=== PATIENT | female | born 1990 | race Caucasian/White ===

== ENCOUNTER 2016-11-24 13:09 | Emergency (ER) | payer BC ==
[~2016-11-24] VITALS: Ht 160 cm; Wt 57.5 kg
[2016-11-24 13:12] VITALS: Ht 160 cm; Wt 57.5 kg
[2016-11-24] MEDS ORDERED: LIDOCAINE/MYLANTA 40 ML BTL PO STA (13:36)
[2016-11-24] MEDS ORDERED: AMOXICILLIN 500 MG CAP PO STA (13:36)
[2016-11-24] MEDS ORDERED: KETOROLAC 30 MG INJ IM STA (13:36)
[2016-11-24] MEDS ORDERED: NAPR-260 PO (14:45)
[2016-11-24] MEDS ORDERED: AMO500 PO (14:45)
--- NOTE | 2016-11-24 15:14 | RADRPT ---
PROCEDURE: XR right third finger(s). CLINICAL INDICATION: Finger pain TECHNIQUE: Three views are available for review. COMPARISON: No prior studies are available for comparison. FINDINGS: There is normal mineralization, architecture and alignment. No fracture or osseous lesion is identi fied. The joints are unremarkable. The soft tissues are unremarkable. IMPRESSION: Unremarkable examination. RPTAT: HGDB .Mehdi Robbins MD, MD Date Time Electronically viewed and signed by .Mehdi Robbins MD, on 11/24/2016 15:14 .B/
[2016-11-24 15:54] VITALS: BP 138/65; PULSE 72; RESP 18; TEMP 98.5
--- NOTE | 2016-11-24 16:29 | ERD ---
ER Documentation Chief Complaint Date/Time DATE: 11/24/16 TIME: 16:22 Chief Complaint SORE THROAT,RIGHT MIDDLE FINGER PAIN HPI This is a 26-year-old female presenting to the emergency department with multiple complaints. Patient is complaining of a constant severe achy sore throat for the past 2 days. Patient states that it is difficult to swallow. Patient states that she started off with a fever but that subsided. She denies any cough. In addition patient is complaining of right middle finger pain for about 1 week. She states that she crushes between a door 1 week ago and rates the pain constant 6 out of 10. She states that she is able to move it but there is still pain. ROS All systems reviewed and are negative except as per history of present illness. Medications Home Meds Active Scripts Naproxen* (Naprosyn*) 500 Mg Tablet, 500 MG PO BID Y for PAIN AND/OR INFLAMMATION, #30 TAB Prov:SLOANE LANDRUM PA-C 11/24/16 Amoxicillin* (Amoxicillin*) 500 Mg Cap, 500 MG PO BID for 10 Days, CAP Prov:SLOANE LANDRUM PA-C 11/24/16 Allergies Allergies: Coded Allergies: No Known Allergy (Unverified , 11/24/16) PMhx/Soc Medical and Surgical Hx: pt denies Medical Hx, pt denies Surgical Hx Hx Alcohol Use: No Hx Substance Use: No Hx Tobacco Use: No Smoking Status: Never smoker Physical Exam Vitals Vital Signs Date Time Temp Pulse Resp B/P Pulse Ox O2 Delivery O2 Flow Rate FiO2 11/24/16 15:54 98.5 72 18 138/65 99 Room Air 11/24/16 13:12 98.0 85 18 124/74 98 Physical Exam GENERAL: well-developed/well-nourished, in no apparent distress, non-toxic appearing HEAD: NC/AT, no swelling noted in frontal or maxillary areas EARS: bilateral tympanic membrane is intact without erythema or effusion NARES: nares patent THROAT: oropharynx erythematous with tonsillar t exudates, no tonsil enlargement , EYES: Conjunctiva normal NECK: Supple, no lymphadenopathy PULM: CTA bilaterally, no rales, rhonchi, or wheezing heard CV: Normal S1S2, RRR, good capillary refill GI: Soft, non-distended, normal bowel sounds, non-tender BACK: No midline tenderness, no masses EXT tenderness to palpation to the right middle finger with mild swelling throughout, restricted range of motion NEURO: Alert and Orientated SKIN: Intact, normal turgor PSYCH: Normal mood and mentation Results 24 hrs Current Medications Medications (Trade) Dose Ordered Sig/Olivia Route PRN Reason Start Time Stop Time Status Last Admin Dose Admin Amoxicillin (Amoxicillin) 500 mg ONCE STAT PO 11/24/16 13:36 11/24/16 13:38 DC 11/24/16 14:09 Ketorolac Tromethamine (Toradol) 30 mg ONCE STAT IM 11/24/16 13:36 11/24/16 13:38 DC 11/24/16 14:02 Miscellaneous Medication (Gi Cocktail (2)) 40 ml ONCE STAT PO 11/24/16 13:36 11/24/16 13:38 DC 11/24/16 14:02 Procedures/MDM This is a 26-year-old female presenting to the emergency department with multiple complaints. Patient is complaining of a constant severe achy sore throat for the past 2 days. This is likely strep pharyngitis versus viral pharyngitis. Patient had no cervical lymphadenopathy, she has a history of fever absent with tonsillar exudates, patient has 3 out of 4 Centor criteria therefore she will be empirically treated with amoxicillin for strep pharyngitis. There was no evidence of retropharyngeal abscess, peritonsillar abscess. No deep space infection. In addition patient also complains of a crush injury to her right middle finger about 1 week ago, and x-ray has been done and there was no evidence of fracture dislocation. This is likely a sprain and ligamentous injury. Patient was placed in a finger splint and I have discussed with her to follow-up with her primary care physician. Patient was given Toradol and amoxicillin in the ER. Prescriptions that have been given; naproxen amoxicillin Patient is hematuria stable for discharge with precautions to return to the ER for any worsening signs or symptoms. She understands and agrees with this plan Departure Diagnosis: Primary Impression: Pharyngitis Additional Impressions: Crush injury Finger pain Condition: Stable Patient Instructions: Self-Care for Sore Throats, Pharyngitis, Strep (Presumed) , Crush Injury, Hand/Finger, No Fracture (Child) Referrals: COMMUNITY CLINICS YOU HAVE RECEIVED A MEDICAL SCREENING EXAM AND THE RESULTS INDICATE THAT YOU DO NOT HAVE A CONDITION THAT REQUIRES URGENT TREATMENT IN THE EMERGENCY DEPARTMENT. FURTHER EVALUATION AND TREATMENT OF YOUR CONDITION CAN WAIT UNTIL YOU ARE SEEN IN YOUR DOCTORS OFFICE WITHIN THE NEXT 1-2 DAYS. IT IS YOUR RESPONSIBILITY TO MAKE AN APPOINTMENT FOR FOLOW-UP CARE. IF YOU HAVE A PRIMARY DOCTOR --you should call your primary doctor and schedule an appointment IF YOU DO NOT HAVE A PRIMARY DOCTOR YOU CAN CALL OUR PHYSICIAN REFERRAL HOTLINE AT IF YOU CAN NOT AFFORD TO SEE A PHYSICIAN YOU CAN CHOSE FROM THE FOLLOWING [facility] [address] [facility]. [facility] [address] [facility] [facility] [address] [facility] [facility] [address] [facility] [facility] [address] [facility]. [facility] [address] [place] [facility]SPECIALTIES Additional Instructions: Take all medicines as directed.FOLLOW UP WITH YOUR PRIMARY CARE PHYSICIAN TOMORROW.Return to this facility if you are not improving as expected. Return to this facility if you are not improving as expected. SLOANE LANDRUM PA-C Nov 24, 2016 16:29
== END 2016-11-24 16:01 | disposition home or self-care (01) ==
LOC: FTE 13:09
DX: J02.9 Acute pharyngitis, unspecified (principal); S67.192A Crushing injury of right middle finger, initial encounter; X58.XXXA Exposure to other specified factors, initial encounter; Y92.9 Unspecified place or not applicable
CPT/HCPCS: 73140; 96372; 99284; J1885; Z7610